=== PATIENT | female | born 1940 | race Caucasian/White ===

== ENCOUNTER 2024-07-31 05:43 | Inpatient (IN) | payer MEDICARE ==
[~2024-07-31] VITALS: Ht 167.6 cm; Wt 71.7 kg
[2024-07-31] VITALS (62 sets, daily range): BP systolic 75–186; BP diastolic 50–100; TEMP 97.5–100.3; O2SAT 88–100
[2024-07-31] MEDS: IV NORMAL SALINE 500 ML BAG IV ONE (06:10)
[2024-07-31] MEDS ORDERED: PIPERACILLIN/TAZOBACTAM/D5W 50 ML IV ONE (07:11)
[2024-07-31 07:13] LABS: BASOPHILS % (AUTO) 0.3 % (0.0-2.0); EOSINOPHILS # (AUTO) 0.1 K/uL (0.0-0.7); HEMATOCRIT 36.3 % (31.2-41.9); HEMOGLOBIN 11.7 g/dL (10.9-14.3); LYMPHOCYTES # (AUTO) 0.6 K/uL (0.8-4.8); LYMPHOCYTES % (AUTO) 6.7 % (20.5-51.5); MEAN CORPUSCULAR HEMOGLOBIN 28.3 uug (24.7-32.8); MEAN CORPUSCULAR HGB CONC 32 g/dL (32.3-35.6); MONOCYTES % (AUTO) 0.4 % (0.0-11.0); NEUTROPHILS # (AUTO) 8.9 K/uL (1.8-8.9); NEUTROPHILS % (AUTO) 91.6 % (38.5-71.5); PLATELET COUNT (AUTO) 267 K/uL (179-408); RED BLOOD CELL COUNT(AUTO) 4.12 MIL/uL (3.63-4.92); RED CELL DISTRIBUTION WIDTH 17.8 % (12.3-17.7); WHITE BLOOD COUNT (AUTO) 9.8 K/uL (3.8-11.8)
[2024-07-31 07:16] LABS: DIFFERENTIAL COMMENT 1
[2024-07-31 07:21] LABS: CALCIUM 9.5 mg/dL (8.5-10.1); CARBON DIOXIDE 26 mmol/L (21-32); CREATININE 1.3 mg/dL (0.6-1.3); GLUCOSE 200 mg/dL (74-106); SODIUM SERUM 135 mmol/L (136-145); UREA NITROGEN, BLOOD 24 mg/dL (7-18)
[2024-07-31] MEDS ORDERED: HYDROCORTISONE SOD SUCCINATE 100 MG/2 ML VIAL IV ONE (07:30)
[2024-07-31] MEDS ORDERED: ONDANSETRON 4 MG/2 ML VIAL ONE (07:30)
[2024-07-31 07:32] LABS: POTASSIUM 2.7 mmol/L (3.5-5.1)
[2024-07-31 07:33] LABS: LACTIC ACID 6.5 mmol/L (0.4-2.0)
[2024-07-31 07:33] LABS: CHLORIDE 97 mmol/L (98-107)
[2024-07-31 07:34] LABS: C-REACTIVE PROTEIN 3.49 mg/dL (0.00-0.30)
[2024-07-31] MEDS: HYDROCORTISONE SOD SUCCINATE 100 MG/2 ML VIAL IV ONE (07:36)
[2024-07-31 07:37] LABS: ALKALINE PHOSPHATASE 163 U/L (50-136); ASPARTATE AMINOTRANSFERASE 29 U/L (15-37); BILIRUBIN,TOTAL 0.6 mg/dL (0.2-1.0)
[2024-07-31] MEDS: ONDANSETRON 4 MG/2 ML VIAL IV ONE (07:37)
[2024-07-31] MEDS: PIPERACILLIN SODIUM/TAZOBACTAM 3.375 G in IV DEXTROSE 5% 50 ML IV ONE (07:37)
[2024-07-31 07:38] LABS: ALANINE AMINOTRANSFERASE 18 U/L (14-59); ALBUMIN 3.3 g/dL (3.4-5.0); LIPASE 60 U/L (16-77); MAGNESIUM 1.3 mg/dL (1.8-2.4); TOTAL PROTEIN, SERUM 7.6 g/dL (6.4-8.2)
[2024-07-31] MEDS ORDERED: METF-440 PO (07:39)
[2024-07-31] MEDS ORDERED: PRED50TA PO (07:39)
[2024-07-31] MEDS ORDERED: FLUD0.1T PO (07:39)
[2024-07-31] MEDS ORDERED: ATOR10TA PO (07:39)
[2024-07-31] MEDS ORDERED: LISI1TAB32 PO (07:39)
[2024-07-31] MEDS ORDERED: POTASSIUM CHLORIDE 50 ML ONE (07:42)
[2024-07-31] MEDS: IV LACTATED RINGERS SOLUTION 1,000 ML BAG IV ONE (08:06)
[2024-07-31] MEDS: POTASSIUM CHLORIDE 50 ML IV ONE (08:06)
[2024-07-31] MEDS ORDERED: MAGNESIUM SULFATE/D5W 100 ML ONE (08:11)
[2024-07-31] MEDS ORDERED: ACETAMINOPHEN 500 MG TABLET ONE (08:11)
[2024-07-31 08:12] LABS: *BILIRUBIN,URIN NEGATIVE (NEGATIVE); *BLOOD, URINE 2+ (NEGATIVE); *CLARITY,URINE CLEAR (CLEAR); *COLOR,URINE YELLOW (YELLOW); *KETONES,URINE NEGATIVE (NEGATIVE); *PROTEIN,URINE 2+ (NEGATIVE); *UROBILINOGEN,URINE 0.2 E.U./dl (NORMAL); LEUKOCYTE ESTERASE ,URINE NEGATIVE (NEGATIVE); NITRITE, URINE NEGATIVE (NEGATIVE); UGLUCOSE NEGATIVE (NEGATIVE)
[2024-07-31 08:18] LABS: BACTERIA,URINE FEW /HPF (NONE SEEN); RBC,URINE 20-50 /HPF (0-3); SQUAMOUS EPITHELIAL CELL,UR FEW /HPF (NONE SEEN); URINE AMORPHOUS URATE FEW /HPF; WBC,URINE 0-3 /HPF (0-3)
[2024-07-31] MEDS ORDERED: APIX2.5T PO (08:23)
[2024-07-31] MEDS: ACETAMINOPHEN 500 MG TABLET PO ONE (08:24)
[2024-07-31] MEDS: MAGNESIUM SULFATE/D5W 100 ML IV ONE (08:25)
[2024-07-31] MEDS: IV NS 1000 ML 1,000 ML IV PRN (09:44)
[2024-07-31] MEDS ORDERED: REMEDY ESSENTIAL ZINC PASTE 113 GM TP PRN (09:45)
[2024-07-31] MEDS ORDERED: ACETAMINOPHEN 650 MG SUPP.RECT RC PRN (09:45)
[2024-07-31] MEDS ORDERED: DEXTROSE 50% 50 ML DISP.SYRIN IV PRN (09:45)
[2024-07-31] MEDS ORDERED: AMIODARONE HCL IV 450 MG in IV DEXTROSE 5% 250 ML IV PRN (10:15)
[2024-07-31] MEDS: ENOXAPARIN SODIUM 40 MG/0.4 ML DISP.SYRIN SQ SCH (10:21)
[2024-07-31] MEDS ORDERED: PHENYLEPHRINE IV 100 MG in IV NORMAL SALINE 240 ML IV PRN (10:45)
[2024-07-31] MEDS: IV NORMAL SALINE 500 ML IV ONE (10:47)
[2024-07-31] MEDS: POTASSIUM CHLORIDE 50 ML IV SCH ×2 (10:48→21:46)
[2024-07-31 10:53] LABS: THYROID STIMULATING HORMONE 1.629 mIU/mL (0.358-3.740)
[2024-07-31] MEDS: BLOOD SUGAR DIAGNOSTIC 1 EACH STRIP VI SCH (11:18)
[2024-07-31] MEDS: DIGOXIN 500 MCG/2 ML AMP IV ONE ×2 (11:18→17:31)
[2024-07-31] MEDS: INSULIN REGULAR, HUMAN 1000 UNIT/10 ML VIAL SQ PRN (11:24)
[2024-07-31] MEDS: MAGNESIUM SULFATE/D5W 100 ML IV SCH (12:52)
[2024-07-31 13:03] LABS: CALCIUM 8.2 mg/dL (8.5-10.1); CARBON DIOXIDE 22 mmol/L (21-32); CHLORIDE 102 mmol/L (98-107); CREATININE 1.1 mg/dL (0.6-1.3); GLUCOSE 216 mg/dL (74-106); POTASSIUM 3.2 mmol/L (3.5-5.1); SODIUM SERUM 138 mmol/L (136-145); UREA NITROGEN, BLOOD 22 mg/dL (7-18)
[2024-07-31] MEDS ORDERED: PIPERACILLIN SODIUM/TAZOBACTAM 3.375 G in IV DEXTROSE 5% 50 ML IV SCH (14:00)
[2024-07-31] MEDS ORDERED: PRED-170 PO (14:12)
[2024-07-31] MEDS: PHENYLEPHRINE IV 100 MG in IV NORMAL SALINE 240 ML IV PRN (15:12)
[2024-07-31] MEDS: PIPERACILLIN SODIUM/TAZOBACTAM 3.375 G in IV DEXTROSE 5% 100 ML IV SCH (15:13)
[2024-07-31] MEDS: ACETAMINOPHEN 325 MG TABLET PO PRN (17:59)
[2024-07-31] MEDS: HYDROCORTISONE SOD SUCCINATE 100 MG/2 ML VIAL IV SCH (20:49)
[2024-07-31] MEDS: NOREPINEPHRINE 8MG/NS 250ML 250 ML IV PRN (21:45)
[2024-08-01] VITALS (43 sets, daily range): BP systolic 101–179; BP diastolic 59–88; TEMP 97.8–98.6; O2SAT 95–100
[2024-08-01 06:02] LABS: BASOPHILS % (AUTO) 0.1 % (0.0-2.0); HEMATOCRIT 25.4 % (31.2-41.9); HEMOGLOBIN 8.6 g/dL (10.9-14.3); LYMPHOCYTES # (AUTO) 0.4 K/uL (0.8-4.8); LYMPHOCYTES % (AUTO) 3.8 % (20.5-51.5); MEAN CORPUSCULAR HEMOGLOBIN 29.6 uug (24.7-32.8); MEAN CORPUSCULAR HGB CONC 34 g/dL (32.3-35.6); MEAN CORPUSCULAR VOLUME 87.4 fL (75.5-95.3); MONOCYTES # (AUTO) 0.4 K/uL (0.1-1.30); MONOCYTES % (AUTO) 3.6 % (0.0-11.0); NEUTROPHILS # (AUTO) 9.4 K/uL (1.8-8.9); NEUTROPHILS % (AUTO) 92.5 % (38.5-71.5); PLATELET COUNT (AUTO) 151 K/uL (179-408); RED CELL DISTRIBUTION WIDTH 17.8 % (12.3-17.7); WHITE BLOOD COUNT (AUTO) 10.2 K/uL (3.8-11.8)
[2024-08-01 06:09] LABS: DIFFERENTIAL COMMENT 1
[2024-08-01 06:16] LABS: ALANINE AMINOTRANSFERASE 24 U/L (14-59); ALBUMIN 2.4 g/dL (3.4-5.0); ALKALINE PHOSPHATASE 108 U/L (50-136); ASPARTATE AMINOTRANSFERASE 53 U/L (15-37); BILIRUBIN,TOTAL 0.7 mg/dL (0.2-1.0); CALCIUM 8.1 mg/dL (8.5-10.1); CARBON DIOXIDE 25 mmol/L (21-32); CHLORIDE 108 mmol/L (98-107); GLUCOSE 158 mg/dL (74-106); MAGNESIUM 2.6 mg/dL (1.8-2.4); PHOSPHOROUS 3.3 mg/dL (2.5-4.9); POTASSIUM 4.2 mmol/L (3.5-5.1); SODIUM SERUM 141 mmol/L (136-145); TOTAL PROTEIN, SERUM 6.1 g/dL (6.4-8.2); UREA NITROGEN, BLOOD 19 mg/dL (7-18)
[2024-08-01] MEDS: FLUDROCORTISONE ACETATE 0.1 MG TABLET PO SCH (08:22)
[2024-08-01] MEDS: PANTOPRAZOLE SODIUM 40 MG VIAL IV SCH (11:29)
[2024-08-01 12:39] LABS: HEMATOCRIT 27.1 % (31.2-41.9); HEMOGLOBIN 8.8 g/dL (10.9-14.3)
[2024-08-02] VITALS (14 sets, daily range): BP systolic 110–154; BP diastolic 60–97; TEMP 97.2–98.2; O2SAT 94–98
[2024-08-02 05:30] LABS: BASOPHILS % (AUTO) 0.1 % (0.0-2.0); EOSINOPHILS % (AUTO) 0.1 % (0.0-7.0); HEMATOCRIT 26.6 % (31.2-41.9); HEMOGLOBIN 8.7 g/dL (10.9-14.3); LYMPHOCYTES # (AUTO) 0.7 K/uL (0.8-4.8); LYMPHOCYTES % (AUTO) 11.2 % (20.5-51.5); MEAN CORPUSCULAR HEMOGLOBIN 28.8 uug (24.7-32.8); MEAN CORPUSCULAR HGB CONC 33 g/dL (32.3-35.6); MEAN CORPUSCULAR VOLUME 88.5 fL (75.5-95.3); MONOCYTES # (AUTO) 0.5 K/uL (0.1-1.30); MONOCYTES % (AUTO) 6.9 % (0.0-11.0); NEUTROPHILS # (AUTO) 5.4 K/uL (1.8-8.9); NEUTROPHILS % (AUTO) 81.7 % (38.5-71.5); PLATELET COUNT (AUTO) 164 K/uL (179-408); RED BLOOD CELL COUNT(AUTO) 3.01 MIL/uL (3.63-4.92); WHITE BLOOD COUNT (AUTO) 6.7 K/uL (3.8-11.8)
[2024-08-02 05:35] LABS: DIFFERENTIAL COMMENT 1
[2024-08-02 05:56] LABS: CALCIUM 8.2 mg/dL (8.5-10.1); CARBON DIOXIDE 26 mmol/L (21-32); CHLORIDE 109 mmol/L (98-107); GLUCOSE 201 mg/dL (74-106); POTASSIUM 3.9 mmol/L (3.5-5.1); SODIUM SERUM 143 mmol/L (136-145); UREA NITROGEN, BLOOD 17 mg/dL (7-18)
[2024-08-02] MEDS: ONDANSETRON 4 MG/2 ML VIAL IV PRN (11:33)
[2024-08-02 12:09] LABS: HEMATOCRIT 28.2 % (31.2-41.9); HEMOGLOBIN 9.3 g/dL (10.9-14.3)
[2024-08-02] MEDS: APIXABAN 2.5 MG TABLET PO SCH (21:42)
[2024-08-03] MEDS: MAGNESIUM HYDROXIDE 30 ML LIQUID UDC PO PRN (00:39)
[2024-08-03 04:00] VITALS: BP 133/64; TEMP 97.6; O2SAT 96
[2024-08-03 07:44] LABS: BASOPHILS % (AUTO) 0.1 % (0.0-2.0); DIFFERENTIAL COMMENT 0; EOSINOPHILS % (AUTO) 0.1 % (0.0-7.0); HEMATOCRIT 26.2 % (31.2-41.9); HEMOGLOBIN 8.6 g/dL (10.9-14.3); LYMPHOCYTES # (AUTO) 0.8 K/uL (0.8-4.8); LYMPHOCYTES % (AUTO) 13.6 % (20.5-51.5); MEAN CORPUSCULAR HGB CONC 33 g/dL (32.3-35.6); MONOCYTES # (AUTO) 0.4 K/uL (0.1-1.30); MONOCYTES % (AUTO) 6.7 % (0.0-11.0); NEUTROPHILS # (AUTO) 4.5 K/uL (1.8-8.9); NEUTROPHILS % (AUTO) 79.5 % (38.5-71.5); PLATELET COUNT (AUTO) 201 K/uL (179-408); RED BLOOD CELL COUNT(AUTO) 2.98 MIL/uL (3.63-4.92); RED CELL DISTRIBUTION WIDTH 17.4 % (12.3-17.7); WHITE BLOOD COUNT (AUTO) 5.7 K/uL (3.8-11.8)
[2024-08-03 07:53] VITALS: BP 156/77; TEMP 97.8; O2SAT 98
[2024-08-03 07:55] LABS: CALCIUM 8.2 mg/dL (8.5-10.1); CARBON DIOXIDE 23 mmol/L (21-32); CHLORIDE 109 mmol/L (98-107); CREATININE 0.9 mg/dL (0.6-1.3); GLUCOSE 199 mg/dL (74-106); MAGNESIUM 2.2 mg/dL (1.8-2.4); PHOSPHOROUS 2.5 mg/dL (2.5-4.9); SODIUM SERUM 143 mmol/L (136-145); UREA NITROGEN, BLOOD 18 mg/dL (7-18)
[2024-08-03] MEDS: HYDROCORTISONE SOD SUCCINATE 100 MG/2 ML VIAL IV SCH (08:32)
[2024-08-03] MEDS ORDERED: PANTOPRAZOLE SODIUM 40 MG TABLET.DR PO SCH (17:00)
== END 2024-08-03 11:36 | disposition home or self-care (01) | DRG 871 ==
LOC: ER 05:47 → CCU 08:38 → TELE3 08-02 14:25 → MEDSURG3 08-03 08:53
PROVIDERS: ADMIT Nurse Practitioner Acute Care; ATTEND Nurse Practitioner Acute Care
PROC: 05HB33Z Insertion of Infusion Device into Right Basilic Vein, Percutaneous Approach (ICD-10-PCS; principal; 2024-08-01)
DX: A41.9 Sepsis, unspecified organism (principal); G92.8 Other toxic encephalopathy; R65.21 Severe sepsis with septic shock; A09 Infectious gastroenteritis and colitis, unspecified; E27.40 Unspecified adrenocortical insufficiency; C18.9 Malignant neoplasm of colon, unspecified; E87.20 Acidosis, unspecified; N17.9 Acute kidney failure, unspecified; E87.6 Hypokalemia; E86.0 Dehydration; I48.0 Paroxysmal atrial fibrillation; Z90.49 Acquired absence of other specified parts of digestive tract; E83.42 Hypomagnesemia; E78.5 Hyperlipidemia, unspecified; K44.9 Diaphragmatic hernia without obstruction or gangrene; K80.20 Calculus of gallbladder without cholecystitis without obstruction; Z96.651 Presence of right artificial knee joint; E11.9 Type 2 diabetes mellitus without complications; I10 Essential (primary) hypertension; Z79.01 Long term (current) use of anticoagulants; Z87.440 Personal history of urinary (tract) infections
CPT/HCPCS: 36415; 71045; 83605; 83690; 83735; 84100; 84443; 84484; 85018; 85025; 85610; 86140; 87040; 87077; 87086; 93005; 93307; A4606; A4663; A9150; G0378; J1160; J1650; J1720; J1815; J2405; J2470; J2543; J3475; J3480; J7040

== ENCOUNTER 2024-08-05 08:58 | Inpatient (IN) | payer MEDICARE ==
[~2024-08-05] VITALS: Ht 167.6 cm; Wt 75.3 kg
[~2024-08-05 08:58] MED LIST: APIX2.5T PO; ATOR10TA PO; FLUD0.1T PO; LISI1TAB32 PO; METF-440 PO; PRED-170 PO
[2024-08-05] MEDS ORDERED: NITROGLYCERIN 0.4 MG/TAB BOTTLE SL ONE (10:00)
[2024-08-05 10:15] LABS: BASOPHILS % (AUTO) 0.3 % (0.0-2.0); EOSINOPHILS # (AUTO) 0.1 K/uL (0.0-0.7); EOSINOPHILS % (AUTO) 2.1 % (0.0-7.0); HEMOGLOBIN 8.6 g/dL (10.9-14.3); LYMPHOCYTES # (AUTO) 0.7 K/uL (0.8-4.8); LYMPHOCYTES % (AUTO) 11.1 % (20.5-51.5); MEAN CORPUSCULAR HEMOGLOBIN 28.9 uug (24.7-32.8); MEAN CORPUSCULAR HGB CONC 33 g/dL (32.3-35.6); MEAN CORPUSCULAR VOLUME 87.3 fL (75.5-95.3); MONOCYTES # (AUTO) 0.6 K/uL (0.1-1.30); MONOCYTES % (AUTO) 9.6 % (0.0-11.0); NEUTROPHILS # (AUTO) 4.6 K/uL (1.8-8.9); NEUTROPHILS % (AUTO) 76.9 % (38.5-71.5); PLATELET COUNT (AUTO) 200 K/uL (179-408); RED BLOOD CELL COUNT(AUTO) 2.98 MIL/uL (3.63-4.92); RED CELL DISTRIBUTION WIDTH 17.6 % (12.3-17.7)
[2024-08-05 10:19] LABS: DIFFERENTIAL COMMENT 1
[2024-08-05 10:23] LABS: CALCIUM 8.4 mg/dL (8.5-10.1); CARBON DIOXIDE 27 mmol/L (21-32); CHLORIDE 108 mmol/L (98-107); CREATININE 0.8 mg/dL (0.6-1.3); GLUCOSE 133 mg/dL (74-106); SODIUM SERUM 142 mmol/L (136-145); UREA NITROGEN, BLOOD 14 mg/dL (7-18)
[2024-08-05 10:33] LABS: POTASSIUM 2.6 mmol/L (3.5-5.1)
[2024-08-05 10:34] LABS: LACTIC ACID 2.1 mmol/L (0.4-2.0)
[2024-08-05 10:36] LABS: ALANINE AMINOTRANSFERASE 35 U/L (14-59); ALBUMIN 2.5 g/dL (3.4-5.0); ALKALINE PHOSPHATASE 142 U/L (50-136); ASPARTATE AMINOTRANSFERASE 17 U/L (15-37); BILIRUBIN,DIRECT 0.3 mg/dL (0.0-0.2); BILIRUBIN,TOTAL 0.7 mg/dL (0.2-1.0); NT-PRO BNP 4845 pg/mL (0-125)
[2024-08-05] MEDS ORDERED: FUROSEMIDE 40 MG/4 ML VIAL ONE (10:58)
[2024-08-05] MEDS ORDERED: POTASSIUM CHLORIDE 100 ML ONE (10:58)
[2024-08-05] MEDS ORDERED: POTASSIUM CHLORIDE 20 MEQ TAB.PRT.SR ONE ×2 (10:59→13:11)
[2024-08-05] MEDS ORDERED: NITROGLYCERIN OINT 1 GM PACKET TP ONE (10:59)
[2024-08-05] MEDS: FUROSEMIDE 40 MG/4 ML VIAL IV ONE (11:28)
[2024-08-05] MEDS: POTASSIUM CHLORIDE 20 MEQ TAB.PRT.SR PO ONE ×2 (11:29→13:19)
[2024-08-05] MEDS: NITROGLYCERIN OINT 1 GM PACKET TP ONE (11:29)
[2024-08-05] MEDS: POTASSIUM CHLORIDE 50 ML IV SCH (11:29)
[2024-08-05] MEDS ORDERED: LIDOCAINE HCL 1% 20 ML VIAL IJ ONE (13:00)
[2024-08-05] MEDS: POTASSIUM CHLORIDE 10 MEQ, LIDOCAINE-MPF 1% 1 ML in IV DEXTROSE 5% 100 ML IV SCH ×2 (13:50→19:45)
[2024-08-05] MEDS ORDERED: REMEDY ESSENTIAL ZINC PASTE 113 GM TP PRN (17:15)
[2024-08-05] MEDS ORDERED: ACETAMINOPHEN 325 MG TABLET PO PRN (17:15)
[2024-08-05] MEDS ORDERED: ONDANSETRON 4 MG/2 ML VIAL IV PRN (17:15)
[2024-08-05] MEDS ORDERED: MAGNESIUM HYDROXIDE 30 ML LIQUID UDC PO PRN (17:15)
[2024-08-05 18:28] LABS: CALCIUM 8.2 mg/dL (8.5-10.1); CARBON DIOXIDE 29 mmol/L (21-32); CHLORIDE 105 mmol/L (98-107); CREATININE 0.8 mg/dL (0.6-1.3); GLUCOSE 127 mg/dL (74-106); POTASSIUM 3.2 mmol/L (3.5-5.1); SODIUM SERUM 143 mmol/L (136-145); UREA NITROGEN, BLOOD 10 mg/dL (7-18)
[2024-08-05] MEDS ORDERED: INSULIN REGULAR, HUMAN 1000 UNIT/10 ML VIAL SQ PRN (18:30)
[2024-08-05] MEDS ORDERED: DEXTROSE 50% 50 ML DISP.SYRIN IV PRN (18:30)
[2024-08-05] MEDS ORDERED: PIPERACILLIN/TAZOBACTAM/D5W 50 ML IV ONE (19:03)
[2024-08-05] MEDS: PIPERACILLIN SODIUM/TAZOBACTAM 3.375 G in IV DEXTROSE 5% 50 ML IV SCH (19:12)
[2024-08-05] MEDS: BLOOD SUGAR DIAGNOSTIC 1 EACH STRIP VI SCH (21:00)
[2024-08-05 21:05] VITALS: BP 140/74; TEMP 97.9; O2SAT 95
[2024-08-06] MEDS ORDERED: PIPERACILLIN SODIUM/TAZOBACTAM 3.375 G in IV DEXTROSE 5% 100 ML IV SCH (06:00)
[2024-08-06] MEDS ORDERED: PANTOPRAZOLE SODIUM 40 MG TABLET.DR PO SCH (07:00)
[2024-08-06] MEDS ORDERED: predniSONE 5 MG TABLET PO SCH (09:00)
[2024-08-06] MEDS ORDERED: FUROSEMIDE 40 MG/4 ML VIAL IV SCH (09:00)
[2024-08-06] MEDS ORDERED: APIXABAN 2.5 MG TABLET PO SCH ×2 (09:00)
[2024-08-06] MEDS ORDERED: FLUDROCORTISONE ACETATE 0.1 MG TABLET PO SCH (09:00)
[2024-08-06] MEDS ORDERED: ATORVASTATIN 10 MG TABLET PO SCH (21:00)
== END 2024-08-05 21:08 | disposition left against medical advice (07) | DRG 871 ==
LOC: ER 08:58 → TELE IN 17:50
DX: A41.52 Sepsis due to Pseudomonas (principal); J96.01 Acute respiratory failure with hypoxia; C18.9 Malignant neoplasm of colon, unspecified; E27.40 Unspecified adrenocortical insufficiency; E87.20 Acidosis, unspecified; I50.9 Heart failure, unspecified; E78.5 Hyperlipidemia, unspecified; Z53.29 Procedure and treatment not carried out because of patient's decision for other reasons; E87.6 Hypokalemia; R00.1 Bradycardia, unspecified; I44.0 Atrioventricular block, first degree; Z79.899 Other long term (current) drug therapy; Z90.49 Acquired absence of other specified parts of digestive tract; D63.8 Anemia in other chronic diseases classified elsewhere; Z79.52 Long term (current) use of systemic steroids; E11.9 Type 2 diabetes mellitus without complications; Z79.01 Long term (current) use of anticoagulants; Z79.84 Long term (current) use of oral hypoglycemic drugs
CPT/HCPCS: 36415; 71045; 83605; 84484; 85025; 85730; 87040; G0378; J1815; J1938; J2003; J2543; J3480; J7512